=== PATIENT | male | born 1985 | race Two or more races ===

== ENCOUNTER 2019-11-01 09:39 | Emergency (ER) | payer OTHER ==
[~2019-11-01] VITALS: Ht 190.5 cm; Wt 99.8 kg
[2019-11-01] MEDS ORDERED: ADDERALL 20 MG20 MG (09:48)
[2019-11-01] MEDS ORDERED: ZITHROMAX500 MG PO (10:30)
[2019-11-01] MEDS ORDERED: FLONASE16 GM TOP (10:30)
[2019-11-01] MEDS ORDERED: MUCINEX1200 MG PO (10:30)
[2019-11-01] MEDS ORDERED: PROMETH-CODEIN 65 ML PO (10:30)
== END 2019-11-01 10:40 | disposition home or self-care (01) ==
LOC: ER 09:39
DX: B34.9 Viral infection, unspecified (principal)